=== PATIENT | female | born 1995 | race Caucasian/White ===

== ENCOUNTER → 2021-06-13 | Outpatient (CLI) | payer OTHER, SELFPAY ==
[2021-06-19 16:39] LABS: HPV Reflexed? NOT INDICATED
== END | disposition home or self-care (01) ==
LOC: LABSPEC 16:36
PROVIDERS: Referring Provider Nurse Practitioner Women's Health; Visit Provider Nurse Practitioner Women's Health
DX: Z12.4 Encounter for screening for malignant neoplasm of cervix (principal)
CPT/HCPCS: 88175; G0145

== ENCOUNTER 2022-01-24 08:41 | Day surgery (SDC) | payer OTHER, SELFPAY ==
--- NOTE | 2022-01-24 | PILCYST_PTH ---
PATIENT: KATHE MONDRAGON LOC: [facility] [place] U#:[id number] AGE/SX: 26/F ROOM: RE01/24/[address]: Dr. Aramis Mchugh MD : 1995 BED: DIS: 01/24/2022 SPEC #: [id number] RECD: 01/24/22 12:39 STATUS: KENNETH CHERYL #: [id number] KEYUR: 01/24/22 00:[address]: Aramis Mchugh DEPT: SURGICAL PATHOLOGY RECD BY: Nawaf Worrell ENTERED: 01/25/22 08:03 SP TYPE: Pilonidal OTHR DR: No Primary Care Phys Tissues: PILONIDAL TISSUE Procedures: Surgery Specimen Level III HEADER OPERATION: Excision, Pilonidal Cyst PRE-OP DIAGNOSIS: Pilonidal Cyst TISSUE SUBMITTED: Pilonidal Cyst MICROSCOPIC DIAGNOSIS Pilonidal cyst, excision: Consistent with inflamed pilonidal cyst. SJ:vern 01/26/2022 MICROSCOPIC DESCRIPTION Slides are reviewed. GROSS DESCRIPTION Received in fixative is one container labeled with the patient's name and designated Pilonidal Cyst. The specimen consists of a piece of skin with underlying tissue measuring 3 x 0.5 cm and up to 1 cm in thickness. Also present in the container are multiple detached pieces of soft tissue measuring in aggregate 3 x 2.5 x 1.5 cm. Manager Rehab sections are submitted in two cassettes. / JOSESITO:evrn 01/25/2022 :5 CPT: 33268
[2022-01-24] MEDS: Lactated Ringers 1,000 ML 15 ML IV (09:00)
--- NOTE | 2022-01-24 09:11 | HP.PCM_ITS ---
History and Physical Date of Admission: 01/24/22 Intake Vital Signs 01/23/22 09:35 Height 5 ft 7 in Weight: 227 lb 6 oz BMI 35.6 BP 130/82 H Blood Pressure Location Lt brachial Position Sitting Respiration 16 Pulse 82 Pulse Source Monitor Temp 97.6 F L Temp Source Temporal Pulse Oximetry (%) 99 Oxygen Delivery Method room air Intake Visit Reasons: PILONIDAL CYST ABOVE BUTTOCKS Chief Complaint: Pilonidal cyst Prune Washer Required: No Is patient in pain?: No Allergies amoxicillin [From Augmentin] Allergy (Intermediate, Verified 01/23/22 09:36) Rash clavulanic acid [From Augmentin] Allergy (Intermediate, Verified 01/23/22 09:36) Rash sulfamethoxazole [From Bactrim] Allergy (Intermediate, Verified 01/23/22 09:36) Rash trimethoprim [From Bactrim] Allergy (Intermediate, Verified 01/23/22 09:36) Rash Sulfa (Sulfonamide Antibiotics) Allergy (Verified 01/23/22 09:36) Swelling Medications levonorgestrel-ethinyl estradiol 0.1 mg-20 mcg tablet 1 tab PO DAILY 01/23/22 [History Confirmed 01/23/22] [facility] Medical History (Updated 01/23/22 @ 10:[address] 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 The patient has had multiple infections in this area and it is becoming more painful again. She says that her last debridement was in April. She is not having any drainage or redness but she did start Augmentin a few days ago. ROS General General: No weight change, appetite, fatigue, colon cancer, breast cancer or weakness HEENT HEENT: No difficulty swallowing, eye injury, eye surgery, swollen glands or hoarseness Endo Endocrine: No thyroid disease, diabetes mellitus, thyroid cancer, Hair loss, heat intolerance or cold intolerance Skin Skin: No rash or changing moles Musc Musculoskeletal: No back problems, arthritis, rheumatoid arthritis, gout or joint pain Cardio Cardiovascular: No murmur, pacemaker, heart disease, atrial fibrillation, high blood pressure, heart attack, heart stent, palpitations, shortness of breat with exertion or chest pain Psych Psychiatric: Yes anxiety; No depression or hearing voices Resp Respiratory: No shortness of breath, No sleep apnea, No cough, No COPD, No asthma, No emphysema and No wheezing Gastro Gastrointestinal: No abdominal pain, Yes nausea or vomiting, Yes diarrhea, No constipation, No blood in stool, No acid reflux, No hemorrhoids, No ulcers, No gallbladder problem and No black,tarry stools David Hematologic: No blood thinners, No blood disorders, No bleeding, No anemia and No blood clots Neuro Neurologic: No system reviewed and no additional complaints, except as documented, No as per HPI, No abnormal gait, No abnormal hearing, No abnormal movements, No abnormal speech, No behavioral changes, No burning sensations, No confusion, No convulsions, No disequilibrium, No dizziness, No localized weakness, No frequent falls, No headache(s), No lack of coordination, No loss of vision, No memory loss, No numbness, No other visual disturbances, No radicular pain, No restless legs, No sensory deficit, No syncope, No tingling, No tremor(s), No weakness and No other Exam Const General: cooperative Orientation: alert and oriented x3 HENOR Head: normal to inspection Neck Neck: normal visual inspection and full ROM Chest Chest palpation & inspection: normal inspection of the chest Resp Effort & Inspection: normal respiratory effort Auscultation: clear to auscultation bilaterally Cardio Rate: regular rate Rhythm: regular rhythm GI Inspection: non-distended Palpation: soft and nontender Other: Patient has pilonidal cyst but I do not see any erythema or feel any fluctuance Skin General: no rashes or lesions noted Neuro General: patient alert and patient oriented x3 Extrem General: full ROM Psych Appearance: grossly normal Mental Status: mental status grossly normal Assessment and Plan Assessment and Plan (1) Pilonidal cyst: Status: Acute Plan - Dr. Aramis Mchugh MD: Patient has a pilonidal cyst with several clefts. I do not believe it is infected at this time but I would recommend excision as she has never had an attempt at excision of the cyst. She has had several debridements and feels that it is becoming painful and full again. I discussed pilonidal cystectomy with her in detail. I discussed the risks including damage to bleeding and infection. I also discussed the difficulty with wound healing and possibility for need for packing. Patient understands all the risks and is when to proceed. Aramis Mchugh MD Pager: [facility] [address] [place] [address], [address] [place] [address] Office: I have re-examined the patient. There are no clinical changes since date of exam.
[2022-01-24 09:15] VITALS: BP 142/80; PULSE 87; RESP 16; TEMP 36.2; O2SAT 87; BMI 35.2
[2022-01-24 09:21] LABS: Internal QC Validated? YES +Cl - CLEAR BKGD; Pregnancy, Urine Negative Negative
[2022-01-24] MEDS: 0.9% Normal Saline (Pres. free 10 ML Vial (10:43)
[2022-01-24] MEDS: Cefazolin 2 GM in 0.9% Normal Saline 100 ML IV (10:44)
[2022-01-24 11:42] VITALS: BP 140/93; BP 142/80; PULSE 96; RESP 16; TEMP 36.4; O2SAT 100
--- NOTE | 2022-01-24 11:43 | OP.PCM_ITS ---
Problems Associated Problem List Diagnoses (1) Pilonidal cyst: Report of Operation Date of Procedure: 01/24/22 Pre-Operative Diagnosis: Pilonidal cyst Post-Operative Diagnosis: Pilonidal cyst Surgery/Procedure Performed:: Pilonidal cystectomy Specimen's removed: Pilonidal cyst cavity Description of Procedure: Patient was brought back the operating room and g eneral anesthesia was induced. The patient was placed in prone jackknife position. The sacral area was prepped and draped in usual sterile fashion. The area around the midline was injected with local anesthetic and then an elliptical incision was made around the clefts to include all of them and it was removed. Electrocautery was used to dissect laterally on each side to healthy fat. The cavity was removed. The cavity was irrigated and electrocautery was used to maintain the stasis. The deep tissue was closed with a 3-0 Vicryl then the skin was closed with interrupted 3-0 Vicryl and running 4 Monocryl. Dermabond was applied. Patient was then awoken and taken to PACU in stable condition. Admit VTE Documentation VTE Mechan Device Prophylaxis: SCD's
[2022-01-24 11:45] VITALS: BP 142/80; BP 144/84; PULSE 104; RESP 18; O2SAT 99
--- NOTE | 2022-01-24 11:51 | EX.PCM.DISCH ---
Discharge Instructions Procedure General Surgery Diet Discharge Diet: Light diet - advance as tolerated Activity Discharge Activity: May Not Drive (while taking narcotic pain meds.) May shower in (days): 1 Lifting Restrictions: 10 pounds for 2 weeks Dressing / Incision Call your doctor if your incision/area has: Continuous Slow Oozing, Sudden Increased Bleeding, Increased Pain/ Swelling, Increased Redness, Foul Smelling Discharge and Swelling at the incision site Call your doctor if you observe: Fever of 101 or Higher Suture Line Care: Avoid Pulling/Pushing and Avoid Pinching/Bending Cleanse incision/area with: Soap & Water Follow Up Care Please Follow Up With: Aramis Mchugh MD When: Please call to schedule 2 week follow up appointment. [phone] Test Results: Test results from this visit will be discussed in further detail at your follow-up appointment, if applicable. Discharge Plan Admission Attending Provider: Aramis Mchugh Primary Care Provider: Care Physician,Alaina Primary Discharge Orders/Prescriptions Prescriptions: Continued amoxicillin-pot clavulanate 875-125 mg tablet 1 tab PO BID 10 Days Qty: 20 RF: 0 No Action levonorgestrel-ethinyl estrad [Lutera (28)] 0.1-20 mg-mcg tablet 1 tab PO DAILY RF: 0 cranberry extract 250 mg Capsule 250 mg PO DAILY RF: 0 Probiotic 10 billion cell Capsule 10,000 mmu cells PO DAILY RF: 0 Referrals / Follow Up: Care Physician,No Primary [Primary Care Provider] - Disposition Disposition (needs filled in before D/C Order can be placed): Home, Self Care
[2022-01-24 12:00] VITALS: BP 127/77; BP 142/80; PULSE 81; RESP 16; O2SAT 99
[2022-01-24 12:15] VITALS: BP 132/79; BP 142/80; PULSE 78; RESP 16; TEMP 36.6; O2SAT 100
[2022-01-24 13:00] VITALS: BP 142/80
== END 2022-01-24 13:28 | disposition home or self-care (01) ==
LOC: SDC 08:43 → AC 08:44
PROVIDERS: Anesthesiology; Referring Provider Surgery; Visit Provider Surgery
PROC: (CPT 11770; principal; 2022-01-24 10:05)
DX: L05.91 Pilonidal cyst without abscess (principal); Z20.822 Contact with and (suspected) exposure to COVID-19
CPT/HCPCS: 11770; 00300; 81025; 87426; 88304; J7120; J3490

== ENCOUNTER → 2024-07-03 | Outpatient (CLI) | payer OTHER, SELFPAY ==
[2024-07-07 04:07] LABS: Chlamydia By Nucleic Acid AMP Negative (Negative); Gonococcus By Nucleic Acid AMP Negative (Negative)
[2024-07-10 08:24] LABS: HPV Reflexed? NOT INDICATED
== END | disposition home or self-care (01) ==
LOC: LABSPEC 14:08
PROVIDERS: Referring Provider Advanced Practice Midwife; Visit Provider Advanced Practice Midwife
DX: O99.210 Obesity complicating pregnancy, unspecified trimester (principal); Z3A.00 Weeks of gestation of pregnancy not specified
CPT/HCPCS: 87086; 87088; 87491; 87591; 88175; G0145

== ENCOUNTER → 2024-07-29 | Outpatient (CLI) | payer OTHER, SELFPAY ==
[2024-07-29 10:26] LABS: Absolute Lymphocyte Count 1.17 X10^3/uL (0.83-4.51); Absolute Neutrophil Count 6.9 X10^3/uL (2.0-7.7); Basophil# 0.03 X10^3/uL; Basophil% 0.4 % (0-1); Eosinophil# 0.05 X10^3/uL; Eosinophils% 0.6 % (0-5); Hematocrit 36.3 % (37-47); Hemoglobin 12.4 g/dL (12.0-15.0); Lymphocyte # 1.17 X10^3/ul (0.83-4.51); Lymphocyte % 13.7 % (19-41); Mean Corp Hgb Conc 34.2 g/dL (32-36); Mean Corpuscular Hgb 29.8 pg (27.0-32.0); Mean Corpuscular Volume 87.3 fL (81-99); Mean Platelet Vol. 10.7 fl (6.2-12.0); Monocyte# 0.36 X10^3/uL; Monocyte% 4.2 % (0-10); NRBC Flagged by Analyzer 0 % (0-5); Neutrophil # 6.89 X10^3/uL (2.7-7.7); Neutrophil % 80.9 % (47-70); Platelet Count 228 K/mm3 (150-450); RBC Distribution Width CV 12.6 % (11.6-14.6); RBC Distribution Width SD 40.1 fl (35.1-43.9); Red Blood Count 4.16 M/mm3 (4.2-5.4); White Blood Count 8.5 K/mm3 (4.4-11.0)
[2024-07-29 11:20] LABS: HIV - WCH Non-Reactive (Nonreactive); Hepatitis B Surface Antigen Non-Reactive (Nonreactive); Hepatitis C Antibody Non-Reactive (Nonreactive); Rubella IgG Reactive (Nonreactive); Syphilis Antibodies Non-reactive
[2024-07-29 11:47] LABS: Hemoglobin A1c 4.8 % (3.8-5.6)
== END | disposition home or self-care (01) ==
LOC: BWCLAB 09:00
PROVIDERS: Referring Provider Advanced Practice Midwife; Visit Provider Advanced Practice Midwife
DX: O99.210 Obesity complicating pregnancy, unspecified trimester (principal); Z34.90 Encounter for supervision of normal pregnancy, unspecified, unspecified trimester; Z3A.00 Weeks of gestation of pregnancy not specified
CPT/HCPCS: 36415; 83036; 85025; 86703; 86762; 86780; 86803; 86850; 86900; 86901; 87340

== ENCOUNTER → 2024-11-16 | Outpatient (CLI) | payer OTHER, SELFPAY ==
[2024-11-16 17:15] LABS: Glucose Challenge Gest 1H 50g 88 mg/dL (70-140)
[2024-11-16 17:18] LABS: Absolute Lymphocyte Count 1.51 X10^3/uL (0.83-4.51); Absolute Neutrophil Count 9.9 X10^3/uL (2.0-7.7); Basophil# 0.02 X10^3/uL; Basophil% 0.2 % (0-1); Eosinophil# 0.03 X10^3/uL; Eosinophils% 0.3 % (0-5); Hematocrit 34.8 % (37-47); Hemoglobin 11.7 g/dL (12.0-15.0); Lymphocyte # 1.51 X10^3/ul (0.83-4.51); Lymphocyte % 12.7 % (19-41); Mean Corp Hgb Conc 33.6 g/dL (32-36); Mean Corpuscular Hgb 31.6 pg (27.0-32.0); Mean Corpuscular Volume 94.1 fL (81-99); Mean Platelet Vol. 10.8 fl (6.2-12.0); Monocyte# 0.41 X10^3/uL; Monocyte% 3.4 % (0-10); NRBC Flagged by Analyzer 0 % (0-5); Neutrophil # 9.87 X10^3/uL (2.7-7.7); Platelet Count 271 K/mm3 (150-450); RBC Distribution Width CV 13.8 % (11.6-14.6); RBC Distribution Width SD 46.7 fl (35.1-43.9); White Blood Count 11.9 K/mm3 (4.4-11.0)
[2024-11-16 17:53] LABS: HIV - WCH Non-Reactive (Nonreactive); Syphilis Antibodies Non-reactive
== END | disposition home or self-care (01) ==
LOC: BWCLAB 13:43
PROVIDERS: Referring Provider Registered Nurse; Visit Provider Registered Nurse
DX: Z34.02 Encounter for supervision of normal first pregnancy, second trimester (principal)
CPT/HCPCS: 36415; 82950; 85025; 86703; 86780

== ENCOUNTER → 2024-12-22 | Outpatient (CLI) | payer OTHER, SELFPAY | END | disposition home or self-care (01) | LOC: LABSPEC 10:13 | PROVIDERS: Referring Provider Obstetrics & Gynecology; Visit Provider Obstetrics & Gynecology | DX: R30.0 Dysuria (principal) | CPT/HCPCS: 87086; 87088 ==

== ENCOUNTER → 2025-01-14 | Outpatient (CLI) | payer OTHER, SELFPAY | END | disposition home or self-care (01) | LOC: LABSPEC 15:12 | PROVIDERS: Referring Provider Obstetrics & Gynecology; Visit Provider Obstetrics & Gynecology | DX: Z34.02 Encounter for supervision of normal first pregnancy, second trimester (principal) | CPT/HCPCS: 87081 ==

== ENCOUNTER 2025-01-22 16:45 | Outpatient (CLI) | payer OTHER, SELFPAY ==
[2025-01-22 16:58] VITALS: RESP 18; TEMP 36.3
[2025-01-22 17:12] VITALS: BMI 41.0
--- NOTE | 2025-01-23 07:21 | OB.TRI.PN ---
Progress Notes Date of Service: 01/22/25 Progress Note: Patient presents for triage evaluation secondary to uterine contractions at 38.0 weeks FHT: 125 Moderate variability reactive no decelerations category I tracing [place]: irregular Contractions Assessment and plan: no cervical change, Reactive NST, reassuring maternal and status patient discharged to home to follow-up in office at next appointment. See problem list details for additional plan information. Charges/Coding Multi Select Codes Urinary/Genital Urinary/Genital CPT Codes: 79470-75 non-stress test Interp Assessment & Plan (1) Uterine contractions: COMMENT: no cervical change, reactive nst, d/c home (2) Obesity affecting : QUALIFIERS: Trimester: second trimester Obesity type affecting : unspecified obesity Qualified Code(s): O99.212 - Obesity complicating , second trimester COMMENT: A1C-nl start NSTs or bpp's at 37 weeks per [facility] recommendations (3) Perineal abscess: COMMENT: ATB- follow up in 2 weeks. RTO if worsening (4) Family history of autism: COMMENT: patient's nephew (brothers son) (5) Family history of Down syndrome: COMMENT: patients 1st cousin (6) Supervision of normal : QUALIFIERS: Normal : normal first Trimester: second trimester Qualified Code(s): Z34.02 - Encounter for supervision of normal first , second trimester COMMENT: PRR,, LINDY 02[birth year]05[birth year]25, girl Spouse Enrico (7) : QUALIFIERS: Weeks of gestation: 37 weeks Qualified Code(s): Z3A.37 - 37 weeks gestation of COMMENT: NIPT low risk, carrier screening neg. GBS neg. (8) Anxiety:
== END 2025-01-22 18:30 | disposition home or self-care (01) ==
LOC: WPOUT 16:55 → WP 16:56
PROVIDERS: Referring Provider Advanced Practice Midwife; Visit Provider Advanced Practice Midwife
DX: O47.1 False labor at or after 37 completed weeks of gestation (principal); O99.213 Obesity complicating pregnancy, third trimester; O99.343 Other mental disorders complicating pregnancy, third trimester; F41.9 Anxiety disorder, unspecified; Z3A.38 38 weeks gestation of pregnancy
CPT/HCPCS: 59025; 59050; 99221; G0378

== ENCOUNTER 2025-01-25 04:41 | Inpatient (IN) | payer OTHER, SELFPAY ==
[2025-01-25] VITALS (42 sets, daily range): BP systolic 94–165; BP diastolic 52–84; PULSE 60–193; RESP 16–18; TEMP 36.1–36.9; O2SAT 75–100; BMI 40.8
[2025-01-25] MEDS: Acetaminophen 500 MG Tablet 1000 MG PO (03:29)
[2025-01-25] MEDS: Lactated Ringers 1,000 ML 999 ML IV (05:20)
[2025-01-25 05:32] LABS: Absolute Lymphocyte Count 2.09 X10^3/uL (0.83-4.51); Absolute Neutrophil Count 11.4 X10^3/uL (2.0-7.7); Basophil# 0.04 X10^3/uL; Basophil% 0.3 % (0-1); Eosinophil# 0.03 X10^3/uL; Eosinophils% 0.2 % (0-5); Hematocrit 32.5 % (37-47); Hemoglobin 11.4 g/dL (12.0-15.0); Lymphocyte # 2.09 X10^3/ul (0.83-4.51); Lymphocyte % 14.7 % (19-41); Mean Corp Hgb Conc 35.1 g/dL (32-36); Mean Corpuscular Hgb 31.4 pg (27.0-32.0); Mean Corpuscular Volume 89.5 fL (81-99); Mean Platelet Vol. 10.7 fl (6.2-12.0); Monocyte# 0.57 X10^3/uL; NRBC Flagged by Analyzer 0 % (0-5); Neutrophil # 11.37 X10^3/uL (2.7-7.7); Neutrophil % 80.3 % (47-70); Platelet Count 234 K/mm3 (150-450); RBC Distribution Width CV 13.3 % (11.6-14.6); RBC Distribution Width SD 43.7 fl (35.1-43.9); Red Blood Count 3.63 M/mm3 (4.2-5.4); White Blood Count 14.2 K/mm3 (4.4-11.0)
[2025-01-25] MEDS: fentaNYL-bupivacaine (epidural) 100 ML BAG EPIDURAL ×2 (06:07→10:16)
[2025-01-25] MEDS: Lactated Ringers 1,000 ML 200 ML IV (06:12)
[2025-01-25 06:14] LABS: Syphilis Antibodies Nonreactive (Nonreactive)
--- NOTE | 2025-01-25 08:07 | HP.PCM.OB_ITS ---
HPI - General General Date of Admission: 01/25/25 HPI Narrative KATHE MONDRAGON, is a 29 y/o @ 38 weeks 3 days who presents to L&D in early labor and requesting an epidural. She is currently comfortable with epidural and contractions slowed to a stop. She is willing to have membranes ruptured and internal monitors placed if needed. Maternal Data Information LINDY Calculator Estimated Delivery Date Method Current WG Current Estimate 02/05/25 LMP (Certain) 38w 3d Other Estimates 02/06/25 Ultrasound #1 38w 2d PFSH PFS Medical History Wears contact lenses Wears glasses Alcohol use Non-smoker History of pilonidal cyst Anxiety Home Medications ?Medication ?Instructions ?Recorded ?Last Taken ?Type multivitamin no.47-iron fum 27 1 cap PO DAILY pregnanc y 06/25/24 01/21/25 22:00 History mg-folate no.1 1 mg-dha 300 mg 1 cap capsule (PNV-DHA) ondansetron 4 mg disintegrating 4 mg PO Q8H PRN nausea and 07/29/24 Unknown Rx tablet vomiting #60 tabs Allergy/AdvReac Type Severity Reaction Status Date / Time sulfamethoxazole (From Allergy Intermediate Itching Verified 01/25/25 05:07 Bactrim) trimethoprim (From Bactrim) Allergy Intermediate Itching Verified 01/25/25 05:07 Family History Grandfather Heart disease Grandmother Heart disease Aunt Breast cancer Surgical History History of excision of pilonidal cyst (~01/2022) Hx of wisdom tooth extraction Social History adopted: No household members: spouse number of children: 0 current occupational status: employed current occupation: Teacher current occupational exposures/hazards: No pets and animals: Yes pets and animals: dog(s) leisure activities: sports history of recent travel: Yes details: [place] March 2024 out of state: Yes out of country: Yes sexually active: Yes Smoking Status: Never smoker second hand exposure: No alcohol intake: former details: not while substance use type: does not use well-balanced diet: about half the time caffeine: Yes Type: carbonated beverages Number of servings: 1 eating out: 1-3 times/week during the past year weight has: remained stable what type of physical activity do you participate in: walking frequency: 3-4 times per week duration: 30-45 minutes/day diane/muslim: Orthodoxy seatbelt use: always do you feel safe at home: Yes additional social history: : [place] History 1 Elective abortions Hx Para 0 Spontaneous abortions Hx # Term Pregnancies Ectopic pregnancies Hx # Pregnancies Multiple births # of living children 0 Visit Details Expected Delivery Route/Plan Labor Preferences- CB/BF classes: [] labor support person: [] labor intervention preferences: [] pain management options preferred: [] cut cord/dad catch: [] : [] PP control planned: [] discussed possible routes of delivery and associated risks: [] special requests: [] Plans Covid status: [] Flu vaccine: [] Tdap vaccine: given Rhogam: na LARC form signed: declined movement and labor precautions reviewed. Problem list reviewed and updated with the most current plan of care details and appropriate orders placed. Relevant counseling for the gestational age provided. Continue routine care and follow up unless otherwise noted in visit notes/problem list details OB Flowsheet Initial Weight: 248 lb Date -?-?-?-?-?-?-?-?--?-?-?-?- EGA Weight BP Urine Prot -?-?-?-?-?-?-?-?-?-?-?-?- Glucose FHR FuHt Pres Dilation -?-?-?-?-?-?-?-?-?-?-?-?- Effaced St Visit Note 07/03/24 -?-?-?-?-?-?-?-?-?-?-?-?- 9w 0d 248 lb 2 oz (+2 oz) 125/72 -?-?-?-?-?-?-?-?-?-?-?-?- 165 -?-?-?-?-?-?-?-?-?-?-?-?- KW- CRL cons wit h dates. Accepts NIPT. KW- CRL cons with dates. Acc epts NIPT. Needs NOB labs at next visit 07/29/24 -?-?-?-?-?-?-?-?-?-?-?-?- 12w 5d 244 lb 6 oz (-3 lb 10 oz) 123/69 Negative -?-?-?-?-?-?-?-?-?-?-?-?- Negative 163 -?-?-?-?-?-?-?-?-?-?-?-?- JV- still nausea paulie and vomiting. will try zofran. pt is a [employer] grade [employer]. CRL measuring adequate for LMP. new ob labs and nipt today 08/24/24 -?-?-?-?-?-?-?-?-?-?-?-?- 16w 3d 244 lb (-4 lb) 244 lb (-4 lb) 136/65 Negative -?-?-?-?-?-?-?-?-?-?-?-?- Negative 160 -?-?-?-?-?-?-?-?-?-?-?-?- JV- still nausea paulie but zofran is causing constipation. sending over promethazine. 09/21/24 -?-?-?-?-?--?-?-?-?-?-?-?- 20w 3d 244 lb 4 oz (-3 lb 12 oz) 120/72 Negative -?-?-?-?-?-?-?-?-?-?-?-?- Negative 154 20 -?-?-?-?-?-?-?-?-?-?-?-?- MH-No VB, LOF. F sivan arreola. Denies concerns 10/08/24 -?-?-?-?-?-?-?-?-?-?-?-?- 22w 6d 245 lb (-3 lb) 113/77 -?-?--?-?-?-?-?-?-?-?-?-?- 145 22 -?-?-?-?-?-?-?-?-?-?-?-?- KW- no vb/lof/ct x. dash fm. work in for a perineal abscess. dime size area on left buttock. has tried warm compresses with no relief. has seen surgery in the past for similar abscess. will rx ATB and RTO in 2 weeks 10/23/24 -?-?-?-?-?-?-?-?-?-?-?-?- 25w 0d 251 lb 8 oz (+3 lb 8 oz) 135/79 Negative -?-?-?-?-?-?-?-?-?-?-?-?- Negative 150 25 -?-?-?-?-?-?-?-?-?-?-?-?- LC- no vb/ctx/lo f. good fm. no concerns. plans on cbe. perineal abscess resolved. 11/16/24 -?-?-?-?-?-?-?-?-?-?-?-?- 28w 3d 255 lb 2 oz (+7 lb 2 oz) 114/75 Negative -?-?-?-?-?-?-?-?-?-?--?-?- Negative 150 29 -?-?-?-?-?-?-?-?-?-?-?-?- KW- no vb/lof/ct x. good fm. Glucose labs today. tdap next appt. LARC today. had CBE classes. 11/25/24 -?-?-?-?-?-?-?-?-?-?-?-?- 29w 5d 253 lb 8 oz (+5 lb 8 oz) 113/74 Negative -?-?-?-?-?-?-?-?-?-?-?-?- Negative 135 30 -?-?-?-?-?-?-?-?-?-?-?-?- SM- no vb lof go od fm no reuglar ctx getting over GI illness 12/07/24 -?-?-?-?-?-?-?-?-?-?-?-?- 31w 3d 259 lb 4 oz (+11 lb 4 oz) 118/82 Negative -?-?-?-?-?-?-?-?-?-?-?-?- Negative 140 33 -?-?-?-?-?-?-?-?-?-?-?-?- KW- no vb/lof/ct x. good fm. on ATB for resp illness-waiting until next appt for TDAP 12/22/24 -?-?-?-?-?-?-?-?-?-?-?-?- 33w 4d 259 lb 2 oz (+11 lb 2 oz) 116/83 Negative -?-?-?-?-?-?-?-?-?-?-?-?- Negative 145 34.5 -?-?-?-?-?-?-?-?-?-?-?-?- JV- thinks may h ave UTI. culture sent. UA looks normal. no lof, vaginal bleeding, or dec fm. 01/07/25 -?-?-?-?-?-?-?-?-?-?-?-?- 35w 6d 263 lb 8 oz (+15 lb 8 oz) 105/73 Negative -?-?-?-?-?-?-?-?-?-?-?-?- Negative 140 36 -?-?-?-?-?-?-?-?-?-?-?-?- KW-no vb/lof/ctx . good fm. next visit gbs swab. 01/14/25 -?-?-?-?-?-?-?-?-?-?-?-?- 36w 6d 263 lb (+15 lb) 123/82 -?-?-?-?-?-?-?-?-?-?-?-?- 130 37 Cephalic 3 -?-?-?-?-?-?-?-?-?-?-?-?- 70 Sm- no v b lof good fm no regular ctx gbs collected 01/21/25 -?-?-?-?-?-?-?-?-?-?-?-?- 37w 6d 267 lb (+19 lb) 112/79 Negative -?-?-?-?-?-?-?-?-?-?-?-?- Negative 130 38 Cephalic 4 -?-?-?-?-?-?-?--?-?-?-?-?- 70 -2 KW- no vb/ lof/ctx. good fm. no concerns ROS Constitutional Constitutional: Denies change in weight, fatigue, fever(s), headache(s), poor appetite or weakness Eyes Eyes: Denies blurry vision, change in vision, seeing flashes or spots in vision ENT HEENT: Denies dizziness, headache(s), loss taste/smell or sore throat Cardiovascular Cardiovascular: Denies chest pain, dizziness, dyspnea, irregular heart rhythm, leg edema, palpitations, rapid heart rate or vomiting Respiratory/Chest Respiratory/Chest: Denies chest tightness, cough, dyspnea or breast pain Gastrointestinal Gastrointestinal: Denies abdominal pain, anorexia, constipation, cramping, diarrhea, hemorrhoids, vomiting or weight changes Genitourinary Genitourinary: Denies dysuria, flank pain, genital lesions, genital pain, urinary frequency or urinary urgency Musculoskeletal Musculoskeletal: Denies back pain, difficulty walking, joint pain, limited range of motion, muscle cramps or numbness Integumentary Integumentary: Denies lesions or unusual bruising Neurologic Neurologic: Denies abnormal movements, abnormal speech, dizziness, numbness, seizure-like activity or syncope Psychiatric Psychiatric: Denies anxiety, behavioral changes, change in appetite, change in libido, cognitive impairment, confusion, depression, difficulty concentrating, hallucinations or suicidal thoughts Endocrine Endocrinology: Denies excessive sweating, polydipsia or polyuria Hematologic/Lymphatic Hematologic/Lymphatic: Denies easy bleeding, easy bruising or lymphadenopathy Allergic/Immunologic Allergic/Immunologic: Denies itchy eyes, lip swelling, seasonal rhinorrhea, rhinitis, throat swelling, tongue swelling, eczemia, wheezing or asthma Vital Signs Vital Signs Vital Signs: 01/25/25 00:02 01/25/25 00:02 01/25/25 00:03 Temperature Temperature Source Pulse Rate 84 Respiratory Rate Blood Pressure 132/58 H BP Systolic 132 BP Diastolic 58 Pulse Ox 99 01/25/25 00:03 01/25/25 00:03 01/25/25 00:03 Temperature Temperature Source Temporal Pulse Rate 78 Respiratory Rate 16 Blood Pressure BP Systolic BP Diastolic Pulse Ox 01/25/25 00:03 01/25/25 02:20 01/25/25 02:20 Temperature 98.2 F Temperature Source Pulse Rate 60 Respiratory Rate Blood Pressure 115/70 BP Systolic 115 BP Diastolic 70 Pulse Ox 01/25/25 05:01 01/25/25 05:01 01/25/25 05:01 Temperature Temperature Source Pulse Rate 76 Respiratory Rate Blood Pressure 94/56 L BP Systolic 94 BP Diastolic 56 Pulse Ox 94 01/25/25 05:01 01/25/25 05:01 01/25/25 05:01 Temperature 97.0 F L Temperature Source Temporal Pulse Rate Respiratory Rate 16 Blood Pressure BP Systolic BP Diastolic Pulse Ox 01/25/25 05:38 01/25/25 05:38 01/25/25 05:41 Temperature Temperature Source Pulse Rate 81 80 Respiratory Rate Blood Pressure BP Systolic BP Diastolic Pulse Ox 99 01/25/25 05:41 01/25/25 05:43 01/25/25 05:43 Temperature Temperature Source Pulse Rate 75 Respiratory Rate Blood Pressure BP Systolic BP Diastolic Pulse Ox 92 100 01/25/25 05:43 01/25/25 05:43 01/25/25 05:43 Temperature Temperature Source Pulse Rate 85 Respiratory Rate 16 Blood Pressure 124/79 H BP Systolic 124 BP Diastolic 79 Pulse Ox 01/25/25 05:48 01/25/25 05:48 01/25/25 05:48 Temperature Temperature Source Pulse Rate 99 Respiratory Rate Blood Pressure 121/84 H BP Systolic 121 BP Diastolic 84 Pulse Ox 100 01/25/25 05:48 01/25/25 05:53 01/25/25 05:53 Temperature Temperature Source Pulse Rate 96 Respiratory Rate 16 Blood Pressure 118/75 BP Systolic 118 BP Diastolic 75 Pulse Ox 01/25/25 05:53 01/25/25 05:54 01/25/25 05:54 Temperature Temperature Source Pulse Rate 98 Respiratory Rate 16 Blood Pressure BP Systolic BP Diastolic Pulse Ox 99 01/25/25 05:59 01/25/25 05:59 01/25/25 05:59 Temperature Temperature Source Pulse Rate 84 Respiratory Rate Blood Pressure 123/57 H BP Systolic 123 BP Diastolic 57 Pulse Ox 98 01/25/25 05:59 01/25/25 06:03 01/25/25 06:03 Temperature Temperature Source Pulse Rate 87 Respiratory Rate 16 Blood Pressure 121/66 H BP Systolic 121 BP Diastolic 66 Pulse Ox 01/25/25 06:03 01/25/25 06:04 01/25/25 06:04 Temperature Temperature Source Pulse Rate 91 Respiratory Rate 18 Blood Pressure BP Systolic BP Diastolic Pulse Ox 86 01/25/25 06:09 01/25/25 06:09 01/25/25 06:09 Temperature Temperature Source Pulse Rate 83 Respiratory Rate Blood Pressure 144/58 H BP Systolic 144 BP Diastolic 58 Pulse Ox 97 01/25/25 06:14 01/25/25 06:14 01/25/25 06:14 Temperature Temperature Source Pulse Rate 83 Respiratory Rate Blood Pressure 165/59 H BP Systolic 165 BP Diastolic 59 Pulse Ox 97 01/25/25 06:19 01/25/25 06:19 01/25/25 06:20 Temperature Temperature Source Pulse Rate 87 Respiratory Rate Blood Pressure 127/55 H BP Systolic 127 BP Diastolic 55 Pulse Ox 99 01/25/25 06:20 01/25/25 06:20 01/25/25 06:23 Temperature Temperature Source Pulse Rate 88 Respiratory Rate 16 Blood Pressure 94/55 L BP Systolic 94 BP Diastolic 55 Pulse Ox 01/25/25 06:23 01/25/25 06:23 01/25/25 06:25 Temperature Temperature Source Pulse Rate 115 H 97 Respiratory Rate Blood Pressure BP Systolic BP Diastolic Pulse Ox 75 01/25/25 06:25 01/25/25 06:28 01/25/25 06:28 Temperature Temperature Source Pulse Rate 89 Respiratory Rate Blood Pressure 94/53 L BP Systolic 94 BP Diastolic 53 Pulse Ox 99 01/25/25 06:28 01/25/25 06:30 01/25/25 06:30 Temperature Temperature Source Pulse Rate 87 Respiratory Rate 16 Blood Pressure BP Systolic BP Diastolic Pulse Ox 97 01/25/25 06:33 01/25/25 06:33 01/25/25 06:33 Temperature Temperature Source Pulse Rate 85 Respiratory Rate 16 Blood Pressure 112/52 L BP Systolic 112 BP Diastolic 52 Pulse Ox 01/25/25 07:19 01/25/25 07:19 01/25/25 07:19 Temperature Temperature Source Temporal Pulse Rate 78 Respiratory Rate Blood Pressure 108/60 BP Systolic 108 BP Diastolic 60 Pulse Ox 01/25/25 07:19 01/25/25 07:19 01/25/25 07:20 Temperature 97.3 F L Temperature Source Pulse Rate 76 Respiratory Rate 16 Blood Pressure BP Systolic BP Diastolic Pulse Ox 01/25/25 07:20 01/25/25 07:38 01/25/25 07:38 Temperature Temperature Source Pulse Rate 87 Respiratory Rate Blood Pressure BP Systolic BP Diastolic Pulse Ox 96 99 01/25/25 07:43 01/25/25 07:43 Temperature Temperature Source Pulse Rate 83 Respiratory Rate Blood Pressure BP Systolic BP Diastolic Pulse Ox 99 Weight Weight: 261 lb Body Mass Index (BMI) 40.8 Physical Exam Const alert, oriented x3, no apparent distress and healthy appearing General Appearance: cooperative; Negative for anxious HEENT normocephalic Face and Sinus: normal facial exam Eyes EOMs intact bilaterally and no scleral icterus General Eye: normal appearance of both eyes Neck full ROM and supple Lymph Lymphatic: no lymphadenopathy noted Chest Chest: abnormal inspection of the chest Resp normal respiratory effort Effort and Inspection: able to speak in complete sentences Cardio regular rate GI soft to palpation and non-tender Inspection: gravid Palpation: soft; Negative for tender external exam normal Amniotic Fluid: ROM+plus Back/Spine no CVA tenderness Extremity normal to inspection, full ROM and no clubbing, cyanosis or edema General Extremity: Negative for calf tenderness or edema Skin Lesions: no lesions Rashes: no rashes Psych mental status grossly normal Labs Labs Labs: Blood Type A POSITIVE Antibody Screen NEGATIVE Hct 32.5 % (37-47) L Hgb 11.4 g/dL (12.0-15.0) L Pap Smear Negative Syphilis Total Ab Nonreactive (Nonreactive) Rubella IgG Antibody Reactive (Nonreactive) Hep Bs Antigen Non-Reactive (Nonreactive) Hepatitis C Antibody Non-Reactive (Nonreactive) Chlamydia DNA (CHANDAN) Negative (Negative) N.gonorrhoeae DNA (CHANDAN) Negative (Negative) HIV 1&2 Antibody Non-Reactive (Nonreactive) Glucose 1 Hr 50 gm 88 mg/dL (70-140) Assessment & Plan (1) Uterine contractions: COMMENT: no cervical change, reactive nst, d/c home (2) Perineal abscess: COMMENT: ATB- follow up in 2 weeks. RTO if worsening (3) Obesity affecting : QUALIFIERS: Trimester: second trimester Obesity type affecting : unspecified obesity Qualified Code(s): O99.212 - Obesity complicating , second trimester COMMENT: A1C-nl start NSTs or bpp's at 37 weeks per [facility] recommendations (4) Family history of autism: COMMENT: patient's nephew (brothers son) (5) Family history of Down syndrome: COMMENT: patients 1st cousin (6) Supervision of normal : QUALIFIERS: Normal : normal first Trimester: second trimester Qualified Code(s): Z34.02 - Encounter for supervision of normal first , second trimester COMMENT: PRR,, LINDY 02/05/25, girl Spouse Enrico (7) : QUALIFIERS: Weeks of gestation: 37 weeks Qualified Code(s): Z3A.37 - 37 weeks gestation of COMMENT: NIPT low risk, carrier screening neg. GBS neg. (8) Anxiety:
[2025-01-25] MEDS: Ondansetron 4 MG/2 ML Vial IV (11:08)
[2025-01-25] MEDS: Oxytocin 10 UNITS/ML Vial IM (12:35)
[2025-01-25] MEDS: Oxytocin 15 Units/NS 250ml 15 UNITS/250 ML IV.SOLN 83 UNITS IV (12:36)
--- NOTE | 2025-01-25 12:48 | OB.VAGDELI_ITS ---
Assessment & Plan (1) Obesity affecting : QUALIFIERS: Trimester: second trimester Obesity type affecting : unspecified obesity Qualified Code(s): O99.212 - Obesity complicating , second trimester COMMENT: A1C-nl start NSTs or bpp's at 37 weeks per [facility] recommendations (2) Family history of autism: COMMENT: patient's nephew (brothers son) (3) Family history of Down syndrome: COMMENT: patients 1st cousin (4) Supervision of normal : QUALIFIERS: Normal : normal first Trimester: second trimester Qualified Code(s): Z34.02 - Encounter for supervision of normal first , second trimester COMMENT: PRR,, LINDY 02/05/25, girl Spouse Enrico (5) : QUALIFIERS: Weeks of gestation: 37 weeks Qualified Code(s): Z3A.37 - 37 weeks gestation of COMMENT: NIPT low risk, carrier screening neg. GBS neg. (6) Anxiety: Maternal Data Information LINDY Calculator Estimated Delivery Date Method Current WG Current Estimate 02/05/25 LMP (Certain) 38w 3d Other Estimates 02/06/25 Ultrasound #1 38w 2d Gestational age: 38 weeks 3 days Vaginal Delivery Maternal Presentation Maternal Presentation: Active Labor Type of Induction: Amniotomy Vaginal Delivery Information Procedure Performed: Spontaneous Vaginal Delivery Surgeon/Practitioner: Marilu Purcell Date of Procedure: 01/25/25 Pre-Procedure Diagnosis: active labor at term Post-Procedure Diagnosis: active labor at term Type of anesthesia: Epidural Estimated Blood Loss: 200cc Time of Delivery: 12:34 Findings Description of procedure: Patient began pushing and delivered the head in the PRETTY presentation. The head was delivered atraumatically. The anterior and posterior shoulders delivered without complication followed by the rest of the and the was placed on the maternal abdomen. Delayed cord clamping was employed for approximately 60 seconds. Cord was clamped and cut and gentle traction was applied to the cord and the placenta delivered spontaneously immediately following it was noted to be intact with three-vessel cord. The perineum and vagina were inspected and noted to have a 1st degree perineal laceration, repaired with a 3-0 vicryl. EBL was 200cc. Patient and infant tolerated delivery well. Procedure findings: viable female . Presentation: Vertex Amniotic Membrane Rupture Type: Spontaneous Amniotic Fluid Description: Clear Placental Delivery Description: Spontaneous Placenta Disposition: [facility] Cord Vessel Description: 3 Vessels Cord Entanglement: None Infant A Gender: Female (1 minute): 8 (5 minute): 10 Delayed Cord Clamping: Yes Manager Business creative services manager: No Post Vaginal Deli Medications given after delivery: IV Pitocin and IM Pitocin Episiotomy Description: None Laceration: 1st degree Complication Complications: No Multi Select Codes Urinary/Genital Urinary/Genital CPT Codes: 89766 Vaginal Delivery [facility]
--- NOTE | 2025-01-25 13:03 | DCINST_ITS ---
Discharge Instructions Diet Discharge Diet: No restrictions DC O2, CPAP, BIPAP needs Home O2 Discharge instructions: No Dressing / Incision Discharge Activity: Return to Normal Activity, May Not Drive (while taking narcotic pain medications.) and May Shower May resume sexual activity in: 4-6 weeks Dressing / Incision Call your doctor if your incision/area has: Continuous Slow Oozing, Sudden Increased Bleeding, Increased Pain/ Swelling, Increased Redness and Foul Smelling Discharge Follow Up Care Please Follow Up With: Marilu Purcell DO When: Call [phone] to make an appointment with your doctor in 6 weeks. If you had elevated blood pressure or 4th degree laceration, you will need to be seen in 2 weeks. Test Results: Test results from this visit will be discussed in further detail at your follow- up appointment, if applicable. Discharge Plan Admission Admit Date/Time: 01/25/25 12:51 Attending Provider: Marilu Purcell Primary Care Provider: Care Physician,No Primary Discharge Orders/Prescriptions Prescriptions: No Action PNV-DHA 27 mg iron-1 mg -300 mg capsule 1 cap PO DAILY ondansetron 4 mg tablet,disintegrating 4 mg PO Q8H PRN (Reason: nausea and vomiting) Qty: 60 6RF Referrals / Follow Up: Care Physician,No Primary [Primary Care Provider] -
[2025-01-25] MEDS: Ibuprofen 600 MG Tablet PO (20:08)
[2025-01-26] MEDS: Acetaminophen 500 MG Tablet 1000 MG PO ×2 (01:38→21:12)
[2025-01-26 04:53] VITALS: BP 117/67; PULSE 64; RESP 16; TEMP 36.5; O2SAT 97
[2025-01-26] MEDS: Ibuprofen 600 MG Tablet PO ×2 (08:02→18:31)
[2025-01-26] MEDS: Benzocaine/Lanolin/Aloe Vera 85 GM Spray 1 SPRAY TOPICAL (08:03)
[2025-01-26 08:37] VITALS: BP 118/74; PULSE 79; RESP 16; TEMP 36.1; O2SAT 98
--- NOTE | 2025-01-26 08:41 | PN.OBGYN_ITS ---
Subjective Subjective Patient doing well without complaints. Tolerating PO. Ambulating and voiding without difficulty. Feeding well. Denies chest pain, shortness of breath, calf pain/swelling, fevers, chills, lightheadedness. Objective Data Objective Data Vital Signs: Vital Signs Temp Pulse Resp BP Pulse Ox O2 Del Method 97.0 F L 79 16 118/74 98 Room Air 01/26/25 08:37 01/26/25 08:37 01/26/25 08:37 01/26/25 08:37 01/26/25 08:37 01/26/25 08:37 Oxygen Delivery Method Room Air Weight: 261 lb Body Mass Index (BMI) 40.8 Intake & Output: Intake and Output for Last 24 Hours 01/24/25 01/25/25 01/26/25 23:59 23:59 23:59 Intake Total 2128 / 2128 Output Total 1000 / 1000 Balance 1128 / 1128 Lab / Micro Data 01/25/25 05:15 ROS Constitutional Constitutional: Reports systems reviewed and no addt'l complaints, except as documented; Denies anorexia or headache(s) Cardiovascular Cardiovascular: Reports systems reviewed and no addt'l complaints, except as documented; Denies dizziness, dyspnea, nausea or tachypnea Respiratory/Chest Respiratory/Chest: Reports systems reviewed and no addt'l complaints, except as documented; Denies cough, dyspnea, shortness of breath at rest or tachypnea Gastrointestinal Gastrointestinal: Reports systems reviewed and no addt'l complaints, except as documented; Denies abdominal pain, constipation or nausea Genitourinary Genitourinary: Reports systems reviewed and no addt'l complaints, except as documented; Denies burning urination, difficulty urinating, dysuria, urinary frequency or urinary incontinence Musculoskeletal Musculoskeletal: Reports systems reviewed and no addt'l complaints, except as documented Integumentary Integumentary: Reports systems reviewed and no addt'l complaints, except as documented Neurologic Neurologic: Reports systems reviewed and no addt'l complaints, except as documented; Denies abnormal speech, dizziness or headache(s) Psychiatric Psychiatric: Reports systems reviewed and no addt'l complaints, except as documented Endocrine Endocrinology: Reports systems reviewed and no addt'l complaints, except as documented Hematologic/Lymphatic Hematologic/Lymphatic: Reports systems reviewed and no addt'l complaints, except as documented Physical Exam Const alert, oriented x3 and no apparent distress Neck full ROM Resp normal respiratory effort, normal air movement and no retractions Effort and Inspection: able to speak in complete sentences and symmetric chest movement GI soft to palpation Bladder / Kidney Exam: bladder normal to palpation Uterus Palpation: uterus fundus firm Extremity normal to inspection and full ROM Psych mental status grossly normal, thought process normal and cooperative Assessment & Plan (1) Vaginal delivery: COMMENT: JV PLAN: s/p PPD # 1 1. routine post delivery care 2. breast feeding- support given 3. rh positive 4. rubella immune (2) Perineal abscess: COMMENT: ATB- follow up in 2 weeks. RTO if worsening (3) Obesity affecting : QUALIFIERS: Trimester: second trimester Obesity type affecting : unspecified obesity Qualified Code(s): O99.212 - Obesity complicating , second trimester COMMENT: A1C-nl start NSTs or bpp's at 37 weeks per [facility] recommendations (4) Family history of autism: COMMENT: patient's nephew (brothers son) (5) Family history of Down syndrome: COMMENT: patients 1st cousin (6) Supervision of normal : QUALIFIERS: Normal : normal first T rimester: second trimester Qualified Code(s): Z34.02 - Encounter for supervision of normal first , second trimester COMMENT: PRR,, LINDY 02/05/25, girl Spouse Enrico (7) : QUALIFIERS: Weeks of gestation: 37 weeks Qualified Code(s): Z 3A.37 - 37 weeks gestation of COMMENT: NIPT low risk, carrier screening neg. GBS neg. (8) Anxiety: Charges/Coding Multi Select Codes Urinary/Genital Urinary/Genital CPT Codes: No Charge
[2025-01-26 14:18] VITALS: BP 105/77; PULSE 88; RESP 16; TEMP 36.7; O2SAT 99
[2025-01-26 21:10] VITALS: BP 126/77; PULSE 81; RESP 16; TEMP 36.8; O2SAT 99
[2025-01-27 02:00] VITALS: BP 117/64; PULSE 68; RESP 16; TEMP 36.7; O2SAT 100
[2025-01-27] MEDS: Ibuprofen 600 MG Tablet PO (05:41)
--- NOTE | 2025-01-27 07:46 | PCM.PN.OB ---
Subjective Subjective Patient doing well without complaints. Tolerating PO. Ambulating and voiding without difficulty. Feeding well. Denies chest pain, shortness of breath, calf pain/swelling, fevers, chills, lightheadedness. Objective Data Objective Data Vital Signs: Vital Signs Temp Pulse Resp BP Pulse Ox O2 Del Method 98.1 F 68 16 117/64 100 Room Air 01/27/25 02:00 01/27/25 02:00 01/27/25 02:00 01/27/25 02:00 01/27/25 02:00 01/27/25 02:00 Oxygen Delivery Method Room Air Weight: 261 lb Body Mass Index (BMI) 40.8 Intake & Output: Intake and Output for Last 24 Hours 01/25/25 01/26/25 01/27/25 23:59 23:59 23:59 Intake Total 2128 / 2128 Output Total 1000 / 1000 Balance 1128 / 1128 Lab / Micro Data 01/25/25 05:15 Physical Exam Const alert and oriented x3 HEENT normocephalic Eyes PERRL Neck full ROM Resp normal respiratory effort GI soft to palpation GI Narrative: FF below U Uterus Palpation: uterus fundus firm Assessment & Plan (1) Vaginal delivery: COMMENT: 01/25/25 Rafael (girl)JV PLAN: Plan s/p PPD # 2 1. routine post delivery care 2. breast feeding- support given 3. rh positive 4. rubella immune 5. home today
[2025-01-27 08:57] VITALS: BP 108/68; PULSE 63; RESP 16; TEMP 36.4; O2SAT 98
--- NOTE | 2025-01-27 13:41 | CASEMGMT ---
Social Work Assessment Labor and Delivery Unit Patient Address: [address] [place] [address] Phone number: [phone] Date of Referral: 01/26/25 Time of Referral:? 1351 Referred By: Dr. Purcell Date of Intervention: 01/27/25?? Time of Intervention:? 929 Reason for Referral:? hx of anxiety, no meds Sw completed chart review and acknowledges social work consult due to maternal mental health history. Sw presented to bedside and introduced self to mother of baby (MARKY- Cam) and father of baby (FOChaz- Enrico). Sw explained reason for sw involvement and completed psychosocial assessment. History obtained from: medical records, MOB and FOB Household composition: Currently residing in the family home is MOB and WILMA. to be included in residence when ready for discharge. Parents deny any problems or concerns with housing, reporting it to be safe and secure. Patient's parent/guardian status:? MARKY states that she and WILMA met through her brother. 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 They have been together for 6 years. This is first baby for both parents. No concerns reported of domestic violence or intimate partner violence. ? Medical History: ?MARYK is 29 year old female who is 1, para 0- now 1 following labor and delivery of . MARKY received routine care during with [facility]. MARKY presented to hospital in labor and delivered baby via vaginal delivery on 01/25/25. Baby girl, named Rafael Victoria, was born weighing 6lb 10oz with apgars of 8 and 10 at one and five minutes of life, respectfully. MARKY reports that she is breast feeding and baby will be followed by Dr. Avery at [facility] for pediatric[facility]. Educational Status:? Both parents have obtained advanced degrees, MARKY has her Master's and WILMA is finishing with his Master's this spring. No problems with reading, learning or comprehension. Financial Status: Both parents are gainfully employed outside of the home. MARKY works as a teacher at [employer] and WILMA is a teacher at [employer]. Supplies: All necessary baby supplies obtained, including: car seat, safe sleep space, clothes, diapers and wipes. Childcare/Caregiver(s):? MARKY states that when both parents have returned to work in the fall they have childcare arrangements made with an in- home program director/morning show host. Transportation:?? Both parents have their drivers license and reliable means of transportation, no barriers. Programs/Agencies Involved: Parents deny being connected to any community agencies that assist them financially. WILMA does have counseling supports that he is connected to and meets with regularly. ? Children Services/Legal Issues:?No prior children services involvement, no issues or concerns warranting referral to be made at this time. ?? Behavioral Health Issues: ??Mental Health History:?WILMA denies mental health history. MARKY reports to experiencing times of anxiety, but is not prescribed medication to help her manage symptoms. MOB states that she has felt as though her anxiety is sporadic and she uses healthy and safe coping mechanisms to help ?manage her symptoms. ? Substance Use History:Parents deny substance use prior to and during . ?? Family History:??Parents deny family history of addiction or significant mental health diagnoses. ??? Drug Screens: No drug screens observed while completing chart review. Family/Social Stressors:?FOB states that they are doing well, both emotionally and physically. They are excited now that baby is here. FOB states that he lost several family members prior to MOB getting . FOB states that when MARKY got he started going to counseling to help process the grief he was experiencing from losing some family members, including: his mom, his brother, his uncle and a cousin. FOB states that counseling has really helped him to process his loss and be prepared for fatherhood. Support Systems: MARKY states that WILMA and her parents along with her brother and sister in law are her biggest supports. Depression/Shaken Baby/Safe Sleeping: Angelica educated parents on signs and symptoms of baby blues and depression. MOB and FOB state that they have heard these terms, but are not familiar with symptoms to be mindful of. Parents receptive to education and state that if MOB were to struggle FOB would be able to recognize that. FOB states that if MOB was having a hard time he would do his best to help her, and if he did not know how he would ask for help. MARKY reports that she feels comfortable talking to FOB and other supports about her mental health, and also feels comfortable seeking help from a counselor when necessary. Angelica educated parents on shaken baby prevention and ABCs of safe sleep. Parents express understanding. ASSESSMENT:? MOB and baby admitted following labor and delivery. MOB with mental health history positive for anxiety. FOB also expresses loss of several loved ones over the past few years that he has sought mental health assistance with. Parents were observed to be engaging and talkative, and open to talking about their mental health history. MOB was laying on bed and was receptive to meeting with sw while FOB sat on couch and participated in completion of assessment with MOB. Baby was observed sleeping comfortably in bassinet. Parents report to feeling good following delivery, although tired. Parents state that they are prepared for home going and eager to take baby home today. Parents have natural support in place and able to seek guidance from mental health supports and services when applicable. PLAN:?? No other services requested or indicated. MOB and baby to be discharged when medically ready. Parents were provided literature regarding: signs and symptoms of baby blues and mood and anxiety disorders, Help Me Grow, shaken baby prevention, ABCs of safe sleep and a list of county resources that are available for them should any needs present themselves. Tanya Diaz, PHOTOVOLTAIC POWER SYSTEMS ENGINEER, SALES AND MARKETING ENGINEER
== END 2025-01-27 11:55 | disposition home or self-care (01) | DRG 807 ==
LOC: WPOUT 04:47 → WP 08:08
PROVIDERS: Advanced Practice Midwife; Admitting Provider Obstetrics & Gynecology; Referring Provider Obstetrics & Gynecology; Visit Provider Obstetrics & Gynecology
DX: O99.214 Obesity complicating childbirth (principal); Z37.0 Single live birth; O99.344 Other mental disorders complicating childbirth; F41.9 Anxiety disorder, unspecified; O70.0 First degree perineal laceration during delivery; Z3A.38 38 weeks gestation of pregnancy; Z82.79 Family history of other congenital malformations, deformations and chromosomal abnormalities
CPT/HCPCS: 59050; 85025; 86780; 86850; 86900; 86901; 99221; G0378; J2405